=== PATIENT | female | born 1965 | race Caucasian/White ===

== ENCOUNTER 2023-07-26 07:03 | Day surgery (SDC) | payer OTHER, MEDICAID, SELFPAY ==
[2023-07-26 08:25] LABS: Glucose - Point of Care 183 mg/dl (70-99)
== END 2023-07-26 10:05 | disposition home or self-care (01) ==
LOC: CATH 07:03
PROVIDERS: ATTENDING PHYSICIAN Internal Medicine Cardiovascular Disease; FAMILY PHYSICIAN Family Medicine
DX: Q21.12 Patent foramen ovale (principal); Q21.11 Secundum atrial septal defect; I10 Essential (primary) hypertension; E11.9 Type 2 diabetes mellitus without complications; Z86.73 Personal history of transient ischemic attack (TIA), and cerebral infarction without residual deficits; Z79.4 Long term (current) use of insulin; Z79.84 Long term (current) use of oral hypoglycemic drugs; Z79.01 Long term (current) use of anticoagulants; Z79.82 Long term (current) use of aspirin
CPT/HCPCS: 93312; 93320; 93325; 82962